=== PATIENT | female | born 1980 | race Asian ===

== ENCOUNTER 2018-03-18 11:04 | Outpatient (CLI) | payer OTHER | END 2018-03-18 12:05 | disposition home or self-care (01) | LOC: OBT 11:04 → L-D 11:04 → OBT 12:05 | DX: O26.893 Other specified pregnancy related conditions, third trimester (principal); R05 Cough; O09.523 Supervision of elderly multigravida, third trimester; Z3A.28 28 weeks gestation of pregnancy | CPT/HCPCS: Z7500 ==

== ENCOUNTER 2018-03-18 12:09 | Emergency (ER) | payer OTHER | END 2018-03-18 12:50 | disposition home or self-care (01) | LOC: FTE 12:09 | DX: O99.89 Other specified diseases and conditions complicating pregnancy, childbirth and the puerperium (principal); R05 Cough; R07.81 Pleurodynia; O99.333 Smoking (tobacco) complicating pregnancy, third trimester; F17.210 Nicotine dependence, cigarettes, uncomplicated; Z3A.29 29 weeks gestation of pregnancy | CPT/HCPCS: 99282; Z7502 ==

== ENCOUNTER 2018-06-04 07:15 | Inpatient (IN) | payer OTHER ==
[2018-06-04] MEDS: LACTATED RINGER'S 1,000 ML IV ×3 (07:38→08:35)
[2018-06-04] MEDS ORDERED: AMPICILLIN 2 GM/NS (PMX) 100 ML (07:40)
[2018-06-04] MEDS: AMPICILLIN 2 GM/NS (PMX) 100 ML IV (07:51)
[2018-06-04 07:56] LABS: ADD MAN DIFF? NO
[2018-06-04 07:58] LABS: BASOPHILS % 0.2 % (0.0-2.0); EOSINOPHILS # 0.1 10^3/ul (0.0-0.5); EOSINOPHILS % 1.1 % (0.0-7.0); HEMATOCRIT 38.4 % (37.0-47.0); HEMOGLOBIN 12.8 g/dl (12.0-16.0); LYMPHOCYTES # 1.9 10^3/ul (0.8-2.9); LYMPHOCYTES % 20.6 % (15.0-51.0); MEAN CORPUSCULAR HEMOGLOBIN 32.5 pg (29.0-33.0); MEAN CORPUSCULAR HGB CONC 33.3 g/dl (32.0-37.0); MEAN CORPUSCULAR VOLUME 97.5 fl (82.0-101.0); MEAN PLATELET VOLUME 10.3 fl (7.4-10.4); MONOCYTE # 0.5 10^3/ul (0.3-0.9); MONOCYTES % 5.6 % (0.0-11.0); NEUTROPHIL # 6.5 10^3/ul (1.6-7.5); NEUTROPHILS % 71.8 % (39.0-77.0); PLATELET COUNT 241 10^3/UL (140-415); RED BLOOD COUNT 3.94 10^6/ul (4.20-5.40); RED CELL DISTRIBUTION WIDTH 13.9 % (11.5-14.5)
[2018-06-04] MEDS ORDERED: MISOPROSTOL 200 MCG TAB PR ×2 (08:00→12:00)
[2018-06-04] MEDS ORDERED: CARBOPROST 250 MCG INJ IM ×2 (08:00→12:00)
[2018-06-04] MEDS ORDERED: OXYTOCIN 30 UNITS/LR 500 ML IV ×2 (08:00→12:00)
[2018-06-04] MEDS ORDERED: LIDOCAINE 1% (MPF) 30 ML INJ INJ (08:00)
[2018-06-04] MEDS ORDERED: METHYLERGONOVINE 0.2 MG INJ IM ×2 (08:00→12:00)
[2018-06-04] MEDS ORDERED: IBUPROFEN 600 MG TAB PO (08:00)
[2018-06-04 08:01] LABS: INR 0.83; PARTIAL THROMBOPLASTIN TIME 26.9 Sec (23.0-35.0); PROTIME 11.5 Sec (11.9-14.9); PT RATIO 0.9
[2018-06-04] MEDS ORDERED: ONDANSETRON 4 MG INJ IV (08:30)
[2018-06-04] MEDS ORDERED: FENTAnyl 2MCG/ML-ROPIV 0.2% 100 ML BAG EPI (08:30)
[2018-06-04] MEDS ORDERED: NALOXONE (0.4 MG/ML) INJ IV (08:30)
[2018-06-04] MEDS ORDERED: DIPHENHYDRAMINE 50 MG INJ IV (08:30)
[2018-06-04] MEDS: OXYTOCIN 30 UNITS/LR 500 ML IV ×3 (10:05→11:34)
[2018-06-04] MEDS: LACTATED RINGER'S 1,000 ML IV* (11:34)
[2018-06-04] MEDS ORDERED: ACETAMINOPHEN 325 MG TAB PO (12:00)
[2018-06-04] MEDS ORDERED: ZOLPIDEM 5 MG TAB PO (12:00)
[2018-06-04] MEDS ORDERED: MAGNESIUM HYDROXIDE 30ML CUP PO (12:00)
[2018-06-04] MEDS ORDERED: HYDROCODONE/APAP (5/325) TAB PO (12:00)
[2018-06-04] MEDS ORDERED: DIPHENHYDRAMINE 25 MG CAP PO (12:00)
[2018-06-04] MEDS: LANOLIN HPA 1 PKT TOP (12:22)
[2018-06-04] MEDS: IBUPROFEN 800 MG TAB PO ×3 (12:22→23:52)
[2018-06-04] MEDS: WITCH HAZEL/GLYCERIN PAD PR (12:22)
[2018-06-04] MEDS: BENZOCAINE 20% 56 ML SPRAY TOP (12:22)
[2018-06-04 12:55] LABS: HEPATITIS B SURFACE ANTIGEN NEGATIVE (NEGATIVE)
[2018-06-04 15:13] LABS: RAPID PLASMA REAGIN NONREACTIVE (NR)
[2018-06-05] MEDS: IBUPROFEN 800 MG TAB PO ×3 (05:33→17:37)
[2018-06-05 08:27] LABS: ADD MAN DIFF? NO
[2018-06-05 08:29] LABS: WHITE BLOOD COUNT 10.7 10^3/ul (4.8-10.8)
[2018-06-05 08:29] LABS: BASOPHILS % 0.3 % (0.0-2.0); EOSINOPHILS # 0.1 10^3/ul (0.0-0.5); HEMATOCRIT 35.5 % (37.0-47.0); HEMOGLOBIN 11.9 g/dl (12.0-16.0); LYMPHOCYTES # 2.1 10^3/ul (0.8-2.9); LYMPHOCYTES % 19.4 % (15.0-51.0); MEAN CORPUSCULAR HEMOGLOBIN 33.2 pg (29.0-33.0); MEAN CORPUSCULAR HGB CONC 33.5 g/dl (32.0-37.0); MEAN CORPUSCULAR VOLUME 99.2 fl (82.0-101.0); MEAN PLATELET VOLUME 10.5 fl (7.4-10.4); MONOCYTE # 0.5 10^3/ul (0.3-0.9); NEUTROPHIL # 7.8 10^3/ul (1.6-7.5); NEUTROPHILS % 73.5 % (39.0-77.0); PLATELET COUNT 204 10^3/UL (140-415); RED BLOOD COUNT 3.58 10^6/ul (4.20-5.40); RED CELL DISTRIBUTION WIDTH 14.1 % (11.5-14.5)
[2018-06-05] MEDS: SENNA/DOCUSATE NA (8.6MG/50MG) TAB PO (21:51)
[2018-06-06] MEDS: IBUPROFEN 800 MG TAB PO ×3 (00:15→12:00)
[2018-06-06] MEDS: DIPHTH/TET/ACEL PERTUSS (ADULT) 0.5 ML VIAL IM* (08:19)
[2018-06-06] MEDS: MEASLES,MUMPS,RUBELLA VACCINE INJ SC* (08:20)
[2018-06-06] MEDS: VARICELLA VACCINE LIVE/PF 1,350 UNIT/0.5 ML ML SC* (08:20)
== END 2018-06-06 12:30 | disposition home or self-care (01) | DRG 807 ==
LOC: OBT 07:15 → L-D 07:15 → OBT 07:20 → L-D 07:20 → PP1 11:32
PROVIDERS: Obstetrics & Gynecology
PROC: 10E0XZZ Delivery of Products of Conception, External Approach (ICD-10-PCS; principal; 2018-06-04)
PROC: 0HQ9XZZ Repair Perineum Skin, External Approach (ICD-10-PCS; 2018-06-04)
DX: O70.9 Perineal laceration during delivery, unspecified (principal); Z37.0 Single live birth; Z3A.39 39 weeks gestation of pregnancy
CPT/HCPCS: 62319; 85025; 85610; 85730; 86592; 86850; 86900; 86901; 87340; 90716

== ENCOUNTER 2018-07-25 14:05 | Emergency (ER) | payer OTHER ==
[2018-07-25] MEDS: ALBUTEROL 0.5% (NEB) 2.5 MG/0.5 ML AMP INH (16:02)
[2018-07-25 16:11] LABS: ADD MAN DIFF? NO
[2018-07-25 16:16] LABS: WHITE BLOOD COUNT 6.4 10^3/ul (4.8-10.8)
[2018-07-25 16:16] LABS: BASOPHILS % 0.3 % (0.0-2.0); EOSINOPHILS # 0.1 10^3/ul (0.0-0.5); EOSINOPHILS % 0.8 % (0.0-7.0); HEMATOCRIT 39.9 % (37.0-47.0); HEMOGLOBIN 13.4 g/dl (12.0-16.0); LYMPHOCYTES # 0.8 10^3/ul (0.8-2.9); LYMPHOCYTES % 12.2 % (15.0-51.0); MEAN CORPUSCULAR HEMOGLOBIN 31.2 pg (29.0-33.0); MEAN CORPUSCULAR HGB CONC 33.6 g/dl (32.0-37.0); MEAN CORPUSCULAR VOLUME 92.8 fl (82.0-101.0); MEAN PLATELET VOLUME 10.5 fl (7.4-10.4); MONOCYTE # 0.5 10^3/ul (0.3-0.9); MONOCYTES % 7.1 % (0.0-11.0); NEUTROPHIL # 5.1 10^3/ul (1.6-7.5); NEUTROPHILS % 79.3 % (39.0-77.0); PLATELET COUNT 203 10^3/UL (140-415); RED CELL DISTRIBUTION WIDTH 12.4 % (11.5-14.5)
[2018-07-25] MEDS: IBUPROFEN 600 MG TAB PO (16:17)
[2018-07-25] MEDS: SOD CHLORIDE 0.9% 1,000 ML IV (16:17)
[2018-07-25] MEDS: DIPHENHYDRAMINE 25 MG CAP PO (16:20)
[2018-07-25 16:34] LABS: ADD UMIC YES; UR ASCORBIC ACID 20 mg/dL (NEGATIVE); UR BILIRUBIN (Dip) NEGATIVE (NEGATIVE); UR BLOOD (Dip) 2+ mg/dL (NEGATIVE); UR CLARITY SLIGHTLY CLOUDY (CLEAR); UR COLOR YELLOW (YELLOW); UR GLUCOSE (Dip) NEGATIVE (NEGATIVE); UR KETONES (Dip) NEGATIVE (NEGATIVE); UR LEUKOCYTE ESTERASE (Dip) NEGATIVE Leu/ul (NEGATIVE); UR MUCUS FEW /HPF (NONE SEEN); UR NITRITE (Dip) NEGATIVE (NEGATIVE); UR RBC 5 /HPF (0-5); UR SPECIFIC GRAVITY (Dip) 1.028 (1.003-1.030); UR TOTAL PROTEIN (Dip) NEGATIVE (NEGATIVE); UR UROBILINOGEN (Dip) NEGATIVE (NEGATIVE); UR WBC 2 /HPF (0-5)
[2018-07-25 16:41] LABS: ALANINE AMINOTRANSFERASE 15 IU/L (13-69); ALBUMIN 4.7 g/dl (3.3-4.9); ALBUMIN/GLOBULIN RATIO 1.42; ALKALINE PHOSPHATASE 58 IU/L (42-121); ANION GAP 12 (5-13); ASPARTATE AMINO TRANSFERASE 19 IU/L (15-46); BILIRUBIN,INDIRECT 0.3 mg/dl (0-1.1); BILIRUBIN,TOTAL 0.3 mg/dl (0.2-1.3); BLOOD UREA NITROGEN 19 mg/dl (7-20); CALCIUM 9.5 mg/dl (8.4-10.2); CARBON DIOXIDE 25 mmol/L (21-31); CHLORIDE 104 mmol/L (97-110); CREATININE 0.66 mg/dl (0.44-1.00); Estimated GFR > 60 mL/min (>60); GLUCOSE 101 mg/dl (70-220); LIPASE 203 U/L (23-300); SODIUM 141 mmol/L (135-144)
[2018-07-25] MEDS: OSELTAMIVIR 75 MG CAP PO (17:44)
== END 2018-07-25 17:48 | disposition home or self-care (01) ==
LOC: FTE 14:05
DX: J10.1 Influenza due to other identified influenza virus with other respiratory manifestations (principal)
CPT/HCPCS: 36415; 71045; 80053; 81001; 83690; 84703; 85025; 87400; 94644; 96360; 99284-25